=== PATIENT | female | born 1980 | race Caucasian/White ===

== ENCOUNTER 2021-01-02 17:07 | Emergency (ER) | payer OTHER, SELFPAY ==
[2021-01-02 17:08] VITALS: BP 150/94; PULSE 93; RESP 15; TEMP 35.7; O2SAT 98; BMI 20.5
--- NOTE | 2021-01-02 17:27 | EX.ED.UPPERE ---
HPI History of Present Illness Chief Complaint: Upper Extremity Injury Informant: patient Narrative Narrative: Patient has right shoulder pain. Bothering her for the last couple of days. She has been using the shoulder a lot. She has been moving tables and pushing her child in a stroller. Pain is worse with movement. On the posterior side of the proximal humeral area radiates downward. She is concerned about a rotator cuff injury. She has had no history of surgeries on the shoulder. She has been trying ibuprofen yesterday. No fevers. No direct trauma. PFSH PFSH Allergy/AdvReac Type Severity Reaction Status Date / Time Penicillins [PCN] Allergy Vomiting Verified 01/02/21 17:11 ROS ROS ED Constitutional Constitutional ED: Denies chills or fever(s) Eyes Eyes: Denies blurry vision, change in vision or diplopia ENT ENT ED: Denies ear pain, rhinorrhea or sore throat Cardiovascular Cardiovascular: Denies chest pain or palpitations Respiratory/Chest Respiratory/Chest: Denies cough, dyspnea or sputum Gastrointestinal Gastrointestinal: Denies abdominal pain, diarrhea, nausea or vomiting Genitourinary Genitourinary ED: Denies dysuria, hematuria or urinary frequency Musculoskeletal Musculoskeletal: Reports other Details: Shoulder pain Integumentary Denies change in pigmentation or rash Neurologic Neurologic: Denies headache(s), numbness or weakness Psychiatric Psychiatric: Denies anxiety or depression Endocrine Endocrinology: Denies polydipsia or polyuria EXAM Physical Exam Const Vital Signs: 01/02/21 17:08 Temperature 96.3 F L Temperature Source Temporal Pulse Rate 93 Respiratory Rate 15 Blood Pressure 150/94 H Blood Pressure Mean 112 Pulse Ox 98 Oxygen Delivery Method Room Air Positive well nourished and well developed General Appearance ED: well developed HEENT normocephalic and atraumatic Eyes PERRL and EOMs intact bilaterally Neck supple Extremity Extremity Narrative: Right shoulder has good, full range of motion. She does have some tenderness on the posterior part of the proximal humeral area. No skin changes. 2+ radial pulses felt. Neuro oriented x3 and CN's II-XII intact bilaterally Sensorium / Orientation: alert Motor Exam: strength 5/5 throughout Psych mental status grossly normal Skin Rashes: no rashes MDM MDM MDM Narrative Medical decision making narrative: Patient had x-rays which did not show any acute findings. They did reveal some patchiness in the lungs however the patient denies any cough or shortness of breath. The patient will be discharged to home to do shoulder exercises and take ibuprofen. She will follow-up with orthopedics Discharge Plan Triage Chief Complaint: Upper Extremity Injury ED Provider: Bacilio Andres Dx/Rx/DC Orders Clinical Impression: Muscle strain of right shoulder Instructions: ED Shoulder Pain, Uncertain Cause Primary Care Provider: Care Physician,No Primary Referrals: [place] DO [STAFF PHYSICIAN] - Care Physician,No Primary [Primary Care Provider] - Disposition Disposition: Home, self care
--- NOTE | 2021-01-02 17:35 | RAD_ITS ---
STUDY: X-RAY - RIGHT SHOULDER REASON FOR EXAM: Female, 40 years old. Pain TECHNIQUE: 3 view(s) of the shoulder. COMPARISON: None. FINDINGS: Normal glenohumeral articulation. Normal acromioclavicular joint. Normal acromion. Normal humeral head and visualized proximal humerus. The soft tissue structures are unremarkable. Patchy pulmonary opacities are nonspecific and should be assessed with a dedicated chest x-ray. RAD/Shoulder min 2 Views IMPRESSION: Intact shoulder. Patchy pulmonary opacities are nonspecific and should be assessed with a dedicated chest x-ray. Electronically Signed: Desmond Rhodes MD at 17:59 EDT Tel , Service support ,
[2021-01-02 18:25] VITALS: BP 123/76; PULSE 68; RESP 17
== END 2021-01-02 18:28 | disposition home or self-care (01) ==
PROVIDERS: Emergency Provider Emergency Medicine
DX: S46.911A Strain of unspecified muscle, fascia and tendon at shoulder and upper arm level, right arm, initial encounter (principal); X58.XXXA Exposure to other specified factors, initial encounter
CPT/HCPCS: 73030; 99282